=== PATIENT | male | born 1945 | race Hispanic/Latino ===

== ENCOUNTER 2017-12-11 21:05 | Inpatient (IN) | payer OTHER ==
[~2017-12-11] VITALS: Ht 172.7 cm; Wt 113.7 kg
[2017-12-11 21:38] LABS: BASOPHILS % (AUTO) 0.5 % (0.0-5.0); EOSINOPHILS % (AUTO) 0.3 % (0.0-8.0); HEMATOCRIT 37.8 % (42-54); LYMPHOCYTES % (AUTO) 8.9 % (21.0-51.0); MEAN CORPUSCULAR HEMOGLOBIN 27.5 pg (27.0-33.0); MEAN CORPUSCULAR VOLUME 83.4 fL (79-99); NEUTROPHILS % (AUTO) 81.3 % (40.0-77.0); PLATELET COUNT (AUTO) 179 K/uL (130-400); RED BLOOD CELL COUNT(AUTO) 4.53 MIL/uL (4.50-6.20); RED CELL DISTRIBUTION WIDTH 13.6 % (11.0-15.5); WHITE BLOOD COUNT (AUTO) 11.3 K/uL (4.8-10.8)
[2017-12-11] MEDS ORDERED: IPRATROPIUM/ALBUTEROL SULFATE 3 ML SOLUTION IH ONE (21:43)
[2017-12-11 21:45] LABS: INR 1.02 (0.85-1.15); PARTIAL THROMBOPLASTIN TIME 25.2 SEC (26.3-35.5); PROTHROMBIN TIME 10.7 SEC (9.6-11.6)
[2017-12-11 22:08] LABS: CREATININE 2.4 mg/dL (0.5-1.5); POTASSIUM 4.4 mmol/L (3.5-5.1)
[2017-12-11 22:27] LABS: ALBUMIN 3.9 g/dL (3.5-5.0); BILIRUBIN,TOTAL 0.9 mg/dL (0.2-1.0); CREATINE KINASE MB 0.6 ng/mL (0.5-3.6); TOTAL PROTEIN, SERUM 7.6 g/dL (6.0-8.3); TROPONIN I 0.06 ng/mL (0.00-0.06)
[2017-12-11] MEDS ORDERED: ACETAMINOPHEN 325 MG TAB ONE (22:36)
[2017-12-11 23:04] LABS: APPEARANCE,URINE Clear (CLEAR); BILIRUBIN,URINE Negative (NEGATIVE); COLOR,URINE Yellow (YELLOW); GLUCOSE, URINE (UA) >=1000 mg/dL (NEGATIVE); KETONES,URINE Negative (NEGATIVE); LEUKOCYTE ESTERASE ,URINE Negative (NEGATIVE); NITRATE,URINE Negative (NEGATIVE); OCCULT BLOOD,URINE Small (NEGATIVE); PROTEIN,URINE 300 (NEGATIVE)
[2017-12-11 23:22] LABS: BACTERIA,URINE None Seen /HPF (None Seen); RBC,URINE 0-1 /HPF (0-1); SQUAMOUS EPITHELIAL CELL,UR Rare /LPF (0-2); WBC,URINE None Seen /HPF (0-1); YEAST,URINE BUDDING None Seen /HPF (None Seen)
[2017-12-11 23:23] LABS: HYALINE CASTS, URINE 0-1 /LPF (0-1 /LPF)
[2017-12-12] MEDS ORDERED: ACETAMINOPHEN 325 MG TAB PO PRN (02:15)
[2017-12-12] MEDS ORDERED: HYDRALAZINE HCL 20 MG/ML VIAL IV PRN (02:15)
[2017-12-12] MEDS ORDERED: ONDANSETRON HCL 4 MG/2 ML VIAL IV PRN (02:15)
[2017-12-12 03:17] LABS: CREATININE 2.7 mg/dL (0.5-1.5); MAGNESIUM 1.7 mg/dL (1.80-2.40); POTASSIUM 4.6 mmol/L (3.5-5.1)
[2017-12-12 03:18] LABS: HEMATOCRIT 33.5 % (42-54); MEAN CORPUSCULAR HEMOGLOBIN 27.7 pg (27.0-33.0); MEAN CORPUSCULAR HGB CONC 32.7 g/dL (32.0-36.0); MEAN CORPUSCULAR VOLUME 84.5 fL (79-99); PLATELET COUNT (AUTO) 147 K/uL (130-400); RED BLOOD CELL COUNT(AUTO) 3.96 MIL/uL (4.50-6.20); WHITE BLOOD COUNT (AUTO) 11.9 K/uL (4.8-10.8)
[2017-12-12] MEDS ORDERED: ZOSYN 3.375GM+NS 50ML 50 ML IV SCH (05:00)
[2017-12-12] MEDS ORDERED: ZOSYN 3.375GM+NS 50ML 50 ML IV ONE ×2 (05:43→13:06)
[2017-12-12] MEDS: FUROSEMIDE 10 MG/ML 4ML VIAL IV SCH (09:00)
[2017-12-12] MEDS: PANTOPRAZOLE SODIUM 40 MG TABLET.DR PO SCH (09:00)
[2017-12-12] MEDS ORDERED: FUROSEMIDE 10 MG/ML 4ML VIAL ONE (10:23)
[2017-12-12] MEDS ORDERED: PANTOPRAZOLE SODIUM 40 MG TABLET.DR PO ONE (10:23)
[2017-12-12] MEDS ORDERED: HEPARIN SODIUM 5000UNIT/ML 1ML VIAL ONE (10:23)
[2017-12-12 18:42] VITALS: BP 133/50
[2017-12-12 19:00] VITALS: BP 126/40
[2017-12-12] MEDS ORDERED: PREG300C PO (19:02)
[2017-12-12] MEDS ORDERED: MONT10TA24 PO (19:02)
[2017-12-12] MEDS ORDERED: TYL3 PO (19:02)
[2017-12-12] MEDS ORDERED: ROSU20TA PO (19:02)
[2017-12-12] MEDS ORDERED: LINA145C PO (19:02)
[2017-12-12] MEDS ORDERED: METO50TA18 PO (19:02)
[2017-12-12] MEDS ORDERED: ISOS60TA4 PO (19:02)
[2017-12-12] MEDS ORDERED: CLOP75TA32 PO (19:02)
[2017-12-12] MEDS ORDERED: INSLAN SQ (19:02)
[2017-12-12] MEDS ORDERED: FLUT16H NS (19:02)
[2017-12-12] MEDS ORDERED: DUTA1CPM4 PO (19:02)
[2017-12-12] MEDS ORDERED: SEVE800T7 PO (19:02)
[2017-12-12] MEDS ORDERED: FLUT1BLS IH (19:02)
[2017-12-12] MEDS: IPRATROPIUM/ALBUTEROL SULFATE 3 ML SOLUTION IH SCH (19:03)
[2017-12-12] MEDS: MEROPENEM 500 MG VIAL IVP SCH (21:07)
[2017-12-12] MEDS: HEPARIN SODIUM 5000UNIT/ML 1ML VIAL SQ SCH (21:08)
[2017-12-12 23:00] VITALS: BP 127/56
[2017-12-13] MEDS: IPRATROPIUM/ALBUTEROL SULFATE 3 ML SOLUTION IH SCH ×4 (00:10→18:36)
[2017-12-13 03:00] VITALS: BP 126/53
[2017-12-13] MEDS: INSULIN HUMULIN R 100 UNIT/ML 3ML SQ SCH ×4 (06:06→20:26)
[2017-12-13 07:53] VITALS: BP 126/58
[2017-12-13] MEDS ORDERED: WATER FOR INJECTION,STERILE 20 ML VIAL ONE (08:55)
[2017-12-13] MEDS: JALYN PO SCH (09:00)
[2017-12-13] MEDS: FUROSEMIDE 10 MG/ML 4ML VIAL IV SCH (09:00)
[2017-12-13] MEDS: FLUTICASONE/VILANTEROL 1 EACH BLST.W.DEV IH SCH (09:00)
[2017-12-13] MEDS: FLUTICASONE PROPIONATE 50MCG/SPRAY 16 GM BOTTLE NS SCH (09:00)
[2017-12-13] MEDS: METOPROLOL TARTRATE 50 MG TAB PO SCH ×2 (09:00→20:21)
[2017-12-13] MEDS: ISOSORBIDE MONO 60 MG TAB.SR PO SCH (09:00)
[2017-12-13] MEDS: MEROPENEM 500 MG VIAL IVP SCH ×2 (09:58→20:20)
[2017-12-13] MEDS: PANTOPRAZOLE SODIUM 40 MG TABLET.DR PO SCH (09:59)
[2017-12-13] MEDS: PREGABALIN 100 MG CAPSULE PO SCH ×2 (09:59→20:21)
[2017-12-13] MEDS: SEVELAMER HCL 800 MG TABLET PO SCH ×3 (09:59→17:00)
[2017-12-13] MEDS: CLOPIDOGREL BISULFATE 75 MG TAB PO SCH (09:59)
[2017-12-13] MEDS: HEPARIN SODIUM 5000UNIT/ML 1ML VIAL SQ SCH ×2 (10:02→20:23)
[2017-12-13 11:47] VITALS: BP 135/62
[2017-12-13] MEDS ORDERED: HEPARIN SODIUM 5000UNIT/ML 1ML VIAL IJ PRN ×2 (15:00)
[2017-12-13] MEDS ORDERED: SODIUM CHLORIDE 0.9% 1000ML 1,000 ML IV PRN (15:00)
[2017-12-13] MEDS ORDERED: ALBUMIN (HUMAN) 25% 100 ML IV PRN (15:00)
[2017-12-13] MEDS ORDERED: 0.9% SODIUM CHLORIDE 250 ML IV BAG IV PRN (15:00)
[2017-12-13 16:10] VITALS: BP 138/43
[2017-12-13 19:00] VITALS: BP 101/43
[2017-12-13] MEDS: ACETAMINOPHEN-CODEINE 300/30MG TAB PO PRN (20:21)
[2017-12-13] MEDS: ATORVASTATIN CALCIUM 40 MG TABLET PO SCH (20:21)
[2017-12-13] MEDS: MONTELUKAST SODIUM 10 MG TAB PO SCH (20:21)
[2017-12-13] MEDS: INSULIN GLARGINE 100 UNITS/ML 10 ML VIAL SQ SCH (20:24)
[2017-12-13 23:00] VITALS: BP 106/41
[2017-12-14] MEDS: IPRATROPIUM/ALBUTEROL SULFATE 3 ML SOLUTION IH SCH ×5 (01:26→23:44)
[2017-12-14 03:00] VITALS: BP 138/47
[2017-12-14 05:12] LABS: BASOPHILS % (AUTO) 0.9 % (0.0-5.0); EOSINOPHILS % (AUTO) 2.3 % (0.0-8.0); HEMATOCRIT 32.3 % (42-54); LYMPHOCYTES % (AUTO) 22.1 % (21.0-51.0); MEAN CORPUSCULAR HEMOGLOBIN 27.7 pg (27.0-33.0); MEAN CORPUSCULAR HGB CONC 33.4 g/dL (32.0-36.0); MEAN CORPUSCULAR VOLUME 82.8 fL (79-99); NEUTROPHILS % (AUTO) 58.7 % (40.0-77.0); PLATELET COUNT (AUTO) 188 K/uL (130-400)
[2017-12-14 05:29] LABS: CREATININE 3.6 mg/dL (0.5-1.5); PHOSPHORUS 4.3 mg/dL (2.5-4.9); POTASSIUM 3.8 mmol/L (3.5-5.1)
[2017-12-14] MEDS: INSULIN HUMULIN R 100 UNIT/ML 3ML SQ SCH ×4 (06:01→23:03)
[2017-12-14 08:00] VITALS: BP 129/65
[2017-12-14] MEDS: JALYN PO SCH (09:00)
[2017-12-14] MEDS: FLUTICASONE PROPIONATE 50MCG/SPRAY 16 GM BOTTLE NS SCH ×2 (09:00→21:00)
[2017-12-14] MEDS: ISOSORBIDE MONO 60 MG TAB.SR PO SCH (09:00)
[2017-12-14] MEDS: FLUTICASONE/VILANTEROL 1 EACH BLST.W.DEV IH SCH (09:00)
[2017-12-14] MEDS: CLOPIDOGREL BISULFATE 75 MG TAB PO SCH (09:37)
[2017-12-14] MEDS: METOPROLOL TARTRATE 50 MG TAB PO SCH ×2 (09:37→23:07)
[2017-12-14] MEDS: PREGABALIN 100 MG CAPSULE PO SCH ×2 (09:37→23:07)
[2017-12-14] MEDS: PANTOPRAZOLE SODIUM 40 MG TABLET.DR PO SCH (09:37)
[2017-12-14] MEDS: HEPARIN SODIUM 5000UNIT/ML 1ML VIAL SQ SCH ×2 (09:40→23:02)
[2017-12-14] MEDS: MEROPENEM 500 MG VIAL IVP SCH ×2 (09:44→23:06)
[2017-12-14] MEDS: SEVELAMER HCL 800 MG TABLET PO SCH ×3 (09:46→16:44)
[2017-12-14] MEDS: ACETAMINOPHEN-CODEINE 300/30MG TAB PO PRN (10:07)
[2017-12-14 11:53] VITALS: BP 128/40
[2017-12-14] MEDS: FUROSEMIDE 10 MG/ML 4ML VIAL IV SCH (15:52)
[2017-12-14 15:54] VITALS: BP 122/54
[2017-12-14 20:15] VITALS: BP 113/49
[2017-12-14] MEDS: INSULIN GLARGINE 100 UNITS/ML 10 ML VIAL SQ SCH (23:03)
[2017-12-14] MEDS: ATORVASTATIN CALCIUM 40 MG TABLET PO SCH (23:07)
[2017-12-14] MEDS: GUAIFENESIN 600 MG TABLET.ER PO SCH (23:07)
[2017-12-14] MEDS: MONTELUKAST SODIUM 10 MG TAB PO SCH (23:07)
[2017-12-15 00:49] VITALS: BP 130/52
[2017-12-15 04:52] VITALS: BP 131/59
[2017-12-15 05:26] LABS: HEMATOCRIT 32.5 % (42-54); MEAN CORPUSCULAR HEMOGLOBIN 27.7 pg (27.0-33.0); MEAN CORPUSCULAR HGB CONC 33.2 g/dL (32.0-36.0); MEAN CORPUSCULAR VOLUME 83.4 fL (79-99); PLATELET COUNT (AUTO) 187 K/uL (130-400); RED CELL DISTRIBUTION WIDTH 13.8 % (11.0-15.5); WHITE BLOOD COUNT (AUTO) 6.3 K/uL (4.8-10.8)
[2017-12-15 05:30] LABS: CREATININE 4.5 mg/dL (0.5-1.5); POTASSIUM 4.4 mmol/L (3.5-5.1)
[2017-12-15] MEDS: INSULIN HUMULIN R 100 UNIT/ML 3ML SQ SCH ×3 (06:04→16:30)
[2017-12-15] MEDS: IPRATROPIUM/ALBUTEROL SULFATE 3 ML SOLUTION IH SCH ×2 (06:16→11:22)
[2017-12-15] MEDS ORDERED: BUDESONIDE 0.5 MG/2 ML INH IH SCH (06:59)
[2017-12-15 08:00] VITALS: BP 102/52
[2017-12-15] MEDS: PREGABALIN 100 MG CAPSULE PO SCH (08:29)
[2017-12-15] MEDS: CLOPIDOGREL BISULFATE 75 MG TAB PO SCH (08:29)
[2017-12-15] MEDS: PANTOPRAZOLE SODIUM 40 MG TABLET.DR PO SCH (08:29)
[2017-12-15] MEDS: SEVELAMER HCL 800 MG TABLET PO SCH ×3 (08:29→17:00)
[2017-12-15] MEDS: METOPROLOL TARTRATE 50 MG TAB PO SCH (09:00)
[2017-12-15] MEDS: JALYN PO SCH (09:00)
[2017-12-15] MEDS: FLUTICASONE PROPIONATE 50MCG/SPRAY 16 GM BOTTLE NS SCH (09:00)
[2017-12-15 10:56] VITALS: BP 139/39
[2017-12-15] MEDS ORDERED: WATER FOR INJECTION,STERILE 20 ML VIAL ONE (11:07)
[2017-12-15] MEDS: MEROPENEM 500 MG VIAL IVP SCH (11:45)
[2017-12-15] MEDS: GUAIFENESIN 600 MG TABLET.ER PO SCH (11:46)
[2017-12-15] MEDS ORDERED: AMOX-426 PO (12:27)
[2017-12-15 16:00] VITALS: BP 133/39
[2018-03-30] MEDS ORDERED: SPIR25TA4 PO (12:04)
== END 2017-12-15 18:04 | disposition home or self-care (01) | DRG 871 ==
LOC: EDH 21:05 → EDHIP 12-12 02:05 → MERGE 12-12 02:05 → 4BH 12-12 18:02
PROVIDERS: ADMIT Family Medicine; ATTEND Family Medicine
PROC: 5A1D70Z Performance of Urinary Filtration, Intermittent, Less than 6 Hours Per Day (ICD-10-PCS; principal; 2017-12-13)
PROC: 5A1D70Z Performance of Urinary Filtration, Intermittent, Less than 6 Hours Per Day (ICD-10-PCS; 2017-12-15)
DX: A41.9 Sepsis, unspecified organism (principal); J18.9 Pneumonia, unspecified organism; I12.0 Hypertensive chronic kidney disease with stage 5 chronic kidney disease or end stage renal disease; E11.21 Type 2 diabetes mellitus with diabetic nephropathy; E11.51 Type 2 diabetes mellitus with diabetic peripheral angiopathy without gangrene; N18.6 End stage renal disease; E11.22 Type 2 diabetes mellitus with diabetic chronic kidney disease; D64.9 Anemia, unspecified; E78.5 Hyperlipidemia, unspecified; E66.9 Obesity, unspecified; I25.10 Atherosclerotic heart disease of native coronary artery without angina pectoris; Z99.2 Dependence on renal dialysis; Z95.5 Presence of coronary angioplasty implant and graft; Z83.3 Family history of diabetes mellitus; Z82.49 Family history of ischemic heart disease and other diseases of the circulatory system; Z68.38 Body mass index [BMI] 38.0-38.9, adult
CPT/HCPCS: 36415; 71045; 80048; 80053; 81001; 82550; 82553; 82948; 83605; 83735; 83874; 84100; 84484; 85025; 85027; 85610; 85730; 87040; 87088; 87186; 87633; 87804; 90935; 93005; 94640; 94664; 99291; A4218; J1644; J1815; J1940; J2185; J2543

== ENCOUNTER 2018-03-29 23:33 | Observation (INO) | payer OTHER ==
[~2018-03-29] VITALS: Ht 172.7 cm; Wt 111.5 kg
[~2018-03-29 23:33] MED LIST: AMOX-426 PO; CLOP75TA32 PO; DUTA1CPM4 PO; FLUT16H NS; FLUT1BLS IH; INSLAN SQ; LINA145C PO; MONT10TA24 PO; PREG300C PO; ROSU20TA PO; SEVE800T7 PO; TYL3 PO
[2018-03-30 00:02] LABS: BASOPHILS % (AUTO) 1.3 % (0.0-5.0); EOSINOPHILS % (AUTO) 5.3 % (0.0-8.0); HEMATOCRIT 35.3 % (42-54); LYMPHOCYTES % (AUTO) 11.8 % (21.0-51.0); MEAN CORPUSCULAR HEMOGLOBIN 27.6 pg (27.0-33.0); MEAN CORPUSCULAR HGB CONC 32.9 g/dL (32.0-36.0); MEAN CORPUSCULAR VOLUME 83.8 fL (79-99); MONOCYTES % (AUTO) 13.1 % (3.0-13.0); NEUTROPHILS % (AUTO) 68.5 % (40.0-77.0); PLATELET COUNT (AUTO) 182 K/uL (130-400); RED BLOOD CELL COUNT(AUTO) 4.21 MIL/uL (4.50-6.20); WHITE BLOOD COUNT (AUTO) 6.2 K/uL (4.8-10.8)
[2018-03-30 00:15] LABS: CREATININE 3.4 mg/dL (0.5-1.5); POTASSIUM 4.6 mmol/L (3.5-5.1)
[2018-03-30 00:16] LABS: PARTIAL THROMBOPLASTIN TIME 26.9 SEC (26.3-35.5); PROTHROMBIN TIME 10.5 SEC (9.6-11.6)
[2018-03-30 00:27] LABS: ALBUMIN 3.3 g/dL (3.5-5.0); TOTAL PROTEIN, SERUM 7.3 g/dL (6.0-8.3)
[2018-03-30] MEDS ORDERED: IOPAMIDOL-370 75 ML VIAL IV ONE (03:10)
[2018-03-30] MEDS ORDERED: ONDANSETRON HCL 4 MG/2 ML VIAL ONE (06:51)
[2018-03-30] MEDS ORDERED: MECLIZINE HCL 25 MG TABLET ONE (07:59)
[2018-03-30] MEDS ORDERED: ONDANSETRON HCL MDV 20ML 2 MG/ML VIAL IVP PRN (11:00)
[2018-03-30 12:00] VITALS: BP 151/47
[2018-03-30] MEDS ORDERED: METO50TA18 PO (12:04)
[2018-03-30] MEDS ORDERED: SPIR25TA6 PO (12:04)
[2018-03-30] MEDS ORDERED: ESCI10TA54 PO (12:04)
[2018-03-30] MEDS ORDERED: LINA5TAB PO (12:04)
[2018-03-30] MEDS ORDERED: ISOS60TA4 PO (12:04)
[2018-03-30] MEDS: MECLIZINE HCL 25 MG TABLET PO SCH ×2 (14:53→23:09)
[2018-03-30 16:00] VITALS: BP 171/59
[2018-03-30] MEDS: SEVELAMER HCL 800 MG TABLET PO SCH (17:20)
[2018-03-30 19:24] VITALS: BP 150/39
[2018-03-30] MEDS ORDERED: HEPARIN SODIUM 5000UNIT/ML 1ML VIAL IJ PRN (20:15)
[2018-03-30] MEDS ORDERED: 0.9% SODIUM CHLORIDE 250 ML IV BAG IV PRN (20:15)
[2018-03-30] MEDS ORDERED: SODIUM CHLORIDE 0.9% 1000ML 1,000 ML IV PRN (20:15)
[2018-03-30 20:18] VITALS: BP 168/69
[2018-03-30] MEDS ORDERED: METOPROLOL TARTRATE 50 MG TAB PO SCH (21:00)
[2018-03-30] MEDS ORDERED: MONTELUKAST SODIUM 10 MG TAB PO SCH (21:00)
[2018-03-30] MEDS ORDERED: ATORVASTATIN CALCIUM 40 MG TABLET PO SCH (21:00)
[2018-03-30] MEDS ORDERED: CITALOPRAM 20 MG TABLET PO SCH (21:00)
[2018-03-30 23:44] VITALS: BP 163/41
[2018-03-31 03:57] VITALS: BP 143/65
[2018-03-31 06:02] LABS: BASOPHILS % (AUTO) 1.1 % (0.0-5.0); EOSINOPHILS % (AUTO) 5.1 % (0.0-8.0); HEMATOCRIT 33.1 % (42-54); LYMPHOCYTES % (AUTO) 16.5 % (21.0-51.0); MEAN CORPUSCULAR HEMOGLOBIN 27.9 pg (27.0-33.0); MEAN CORPUSCULAR HGB CONC 33.9 g/dL (32.0-36.0); MEAN CORPUSCULAR VOLUME 82.4 fL (79-99); MONOCYTES % (AUTO) 16.6 % (3.0-13.0); NEUTROPHILS % (AUTO) 60.7 % (40.0-77.0); PLATELET COUNT (AUTO) 198 K/uL (130-400); RED BLOOD CELL COUNT(AUTO) 4.01 MIL/uL (4.50-6.20); RED CELL DISTRIBUTION WIDTH 13.5 % (11.0-15.5); WHITE BLOOD COUNT (AUTO) 5.8 K/uL (4.8-10.8)
[2018-03-31 06:11] LABS: CREATININE 2.9 mg/dL (0.5-1.5)
[2018-03-31] MEDS: SEVELAMER HCL 800 MG TABLET PO SCH (07:46)
[2018-03-31] MEDS ORDERED: DUTASTERIDE PO SCH (09:00)
[2018-03-31] MEDS ORDERED: TAMSULOSIN PO SCH (09:00)
[2018-03-31] MEDS ORDERED: CLOPIDOGREL BISULFATE 75 MG TAB PO SCH (09:00)
[2018-03-31] MEDS: MECLIZINE HCL 25 MG TABLET PO SCH (09:56)
[2018-03-31] MEDS ORDERED: METO50 PO (11:27)
== END 2018-03-31 13:35 | disposition home or self-care (01) ==
LOC: EDH 23:33 → EDHIP 03-30 09:00 → MERGE 03-30 09:00 → INTOOBSV 03-30 09:00 → 3DH 03-30 10:17
PROVIDERS: ADMIT Internal Medicine Nephrology; ATTEND Internal Medicine Nephrology
DX: I12.0 Hypertensive chronic kidney disease with stage 5 chronic kidney disease or end stage renal disease (principal); E11.22 Type 2 diabetes mellitus with diabetic chronic kidney disease; E11.319 Type 2 diabetes mellitus with unspecified diabetic retinopathy without macular edema; E11.51 Type 2 diabetes mellitus with diabetic peripheral angiopathy without gangrene; I25.10 Atherosclerotic heart disease of native coronary artery without angina pectoris; R42 Dizziness and giddiness; D64.9 Anemia, unspecified; N18.6 End stage renal disease; Z99.2 Dependence on renal dialysis; Z82.49 Family history of ischemic heart disease and other diseases of the circulatory system; Z83.3 Family history of diabetes mellitus; Z79.01 Long term (current) use of anticoagulants
CPT/HCPCS: 36415 ×2; 70450; 70544; 70547; 70551; 71045; 80048; 80053; 82150; 82550; 82553; 82948 ×5; 83690; 83874; 84484; 85025 ×2; 85610; 85730; 93005; 99285; A4600; G0378 ×29; J1644 ×2; J2405; 90935; G0257; Q9967

== ENCOUNTER 2019-12-01 15:59 | Observation (INO) | payer OTHER ==
[~2019-12-01] VITALS: Ht 172.7 cm; Wt 116.3 kg
[~2019-12-01 15:59] MED LIST changes: -AMOX-426 PO; +CARB15DR87 OP; +ESCI10TA54 PO; +FERR210T PO; +GUAI237L82 PO; +ISOS30TA6 PO; +ISOS60TA4 PO; +LEVO500T2 PO; +LINA5TAB PO; +METO25 PO; +MOME17SP10 NS; -MONT10TA24 PO; +NITR0.4T50 SL; -ROSU20TA PO; +ROSU20TA23 PO
[2019-12-01 17:22] LABS: BASOPHILS % (AUTO) 0.1 % (0.0-5.0); EOSINOPHILS % (AUTO) 1.2 % (0.0-8.0); HEMATOCRIT 32.7 % (42-54); MEAN CORPUSCULAR HEMOGLOBIN 26.7 pg (27.0-33.0); MEAN CORPUSCULAR HGB CONC 31.2 g/dL (32.0-36.0); MEAN CORPUSCULAR VOLUME 85.6 fL (79-99); MONOCYTES % (AUTO) 15.8 % (3.0-13.0); NEUTROPHILS % (AUTO) 64.4 % (40.0-77.0); PLATELET COUNT (AUTO) 224 K/uL (130-400); RED BLOOD CELL COUNT(AUTO) 3.82 MIL/uL (4.50-6.20); RED CELL DISTRIBUTION WIDTH 13.1 % (11.0-15.5); WHITE BLOOD COUNT (AUTO) 8.2 K/uL (4.8-10.8)
[2019-12-01 17:36] LABS: INR 1.01 (0.85-1.15); PARTIAL THROMBOPLASTIN TIME 23.8 SEC (26.3-35.5); PROTHROMBIN TIME 10.6 SEC (9.6-11.6)
[2019-12-01 17:39] LABS: ALBUMIN 3.6 g/dL (3.5-5.0); BILIRUBIN,DIRECT 0.1 mg/dL (0.0-0.3); BILIRUBIN,TOTAL 0.4 mg/dL (0.2-1.0); POTASSIUM 4.8 mmol/L (3.5-5.1)
[2019-12-01 17:44] LABS: CREATININE 10.6 mg/dL (0.5-1.5)
[2019-12-01] MEDS ORDERED: ASPIRIN 81MG TAB.CHEW ONE (18:35)
[2019-12-01 18:53] LABS: B-TYPE NATRIURETIC PEPTIDE 34 pg/mL (0-100)
[2019-12-01] MEDS ORDERED: MORPHINE SULFATE 2 MG/ML 1ML SYG IV PRN (19:00)
[2019-12-01] MEDS ORDERED: NITROGLYCERIN 0.4 MG SL TAB SL PRN (19:00)
[2019-12-01] MEDS ORDERED: LACTULOSE 20 GM/30 ML UDCUP PO PRN (19:00)
[2019-12-01] MEDS ORDERED: ACETAMINOPHEN 325 MG TAB PO PRN (19:00)
[2019-12-01] MEDS ORDERED: ONDANSETRON HCL 4 MG/2 ML VIAL IV PRN (19:00)
[2019-12-01 19:21] LABS: CHOLESTEROL 120 mg/dL (<200); HDL CHOLESTEROL 104 mg/dL (29-71); HEMOGLOBIN A1C 10.4 % (4.0-6.0); LDL DIRECT 47 mg/dL (0-99); TRIGLYCERIDES 200 mg/dL (30-200)
[2019-12-01] MEDS ORDERED: HEPARIN SODIUM 5000UNIT/ML 1ML VIAL SQ SCH (19:30)
[2019-12-01] MEDS ORDERED: HEPARIN SODIUM 5000UNIT/ML 1ML VIAL ONE (20:49)
[2019-12-01] MEDS ORDERED: FAMOTIDINE 20MG TAB 20 MG TAB ONE (20:49)
[2019-12-01] MEDS ORDERED: ATORVASTATIN CALCIUM 20 MG TABLET ONE (20:49)
[2019-12-01] MEDS: ATORVASTATIN CALCIUM 20 MG TABLET PO SCH (21:00)
[2019-12-01] MEDS: INSULIN HUMULIN R 100 UNIT/ML 3ML SQ SCH (21:00)
[2019-12-01] MEDS ORDERED: ACETAMINOPHEN 325 MG TAB ONE (23:10)
[2019-12-01] MEDS: IPRATROPIUM/ALBUTEROL SULFATE 3 ML SOLUTION IH SCH (23:58)
[2019-12-02] VITALS (7 sets, daily range): BP systolic 96–120; BP diastolic 39–52
[2019-12-02] MEDS ORDERED: SUCR500T PO (00:57)
[2019-12-02] MEDS ORDERED: TIOT4MIS3 IH (00:57)
[2019-12-02] MEDS ORDERED: METO-408 PO (00:57)
[2019-12-02 04:08] LABS: BASOPHILS % (AUTO) 0.2 % (0.0-5.0); HEMATOCRIT 32.4 % (42-54); LYMPHOCYTES % (AUTO) 25.8 % (21.0-51.0); MEAN CORPUSCULAR HEMOGLOBIN 26.6 pg (27.0-33.0); MEAN CORPUSCULAR HGB CONC 31.2 g/dL (32.0-36.0); MEAN CORPUSCULAR VOLUME 85.5 fL (79-99); MONOCYTES % (AUTO) 15.6 % (3.0-13.0); NEUTROPHILS % (AUTO) 54.5 % (40.0-77.0); PLATELET COUNT (AUTO) 220 K/uL (130-400); RED BLOOD CELL COUNT(AUTO) 3.79 MIL/uL (4.50-6.20); RED CELL DISTRIBUTION WIDTH 13.2 % (11.0-15.5); WHITE BLOOD COUNT (AUTO) 6.4 K/uL (4.8-10.8)
[2019-12-02 05:06] LABS: POTASSIUM 4.9 mmol/L (3.5-5.1)
[2019-12-02 05:08] LABS: CREATININE 11.8 mg/dL (0.5-1.5)
[2019-12-02] MEDS: INSULIN HUMULIN R 100 UNIT/ML 3ML SQ SCH ×4 (05:51→21:34)
[2019-12-02] MEDS ORDERED: ASPIRIN 81MG TAB.CHEW ONE (08:36)
[2019-12-02] MEDS: FAMOTIDINE 20MG TAB 20 MG TAB PO SCH (08:56)
[2019-12-02] MEDS: ASPIRIN 325 MG TABLET PO SCH (08:56)
[2019-12-02] MEDS: HEPARIN SODIUM 5000UNIT/ML 1ML VIAL SQ SCH ×2 (08:57→21:35)
[2019-12-02] MEDS ORDERED: MIDODRINE HCL 5 MG TABLET ONE (09:00)
[2019-12-02] MEDS: MIDODRINE HCL 5 MG TABLET PO SCH ×3 (09:09→21:38)
[2019-12-02] MEDS: ACETAMINOPHEN 325 MG TAB PO PRN (10:15)
[2019-12-02] MEDS: IPRATROPIUM/ALBUTEROL SULFATE 3 ML SOLUTION IH SCH ×3 (12:16→23:14)
--- NOTE | 2019-12-02 14:57 | NUR ---
DC PLAN VISITED WITH PATIENT. PATIENT LIVES WITH ALONE. INDEPENDENT ABLE TO PERFORM MOST ADL'S. PATIENT HAS PROVIDER 4 HRS A DAY. SHE TAKES HIM TO DIALYSIS TTS. USES A WHEEL CHAIR AND CANE. FEELS SAFE TO RETURN. Addendum: 12/02/19 at 1459 by MOUSTAPHA RAMSEY RN CM Amended: Links added.
[2019-12-02] MEDS: ATORVASTATIN CALCIUM 20 MG TABLET PO SCH (21:38)
[2019-12-03 04:00] VITALS: BP 120/44
[2019-12-03] MEDS: INSULIN HUMULIN R 100 UNIT/ML 3ML SQ SCH ×2 (06:19→11:30)
[2019-12-03] MEDS: IPRATROPIUM/ALBUTEROL SULFATE 3 ML SOLUTION IH SCH ×2 (07:25→11:19)
[2019-12-03 08:14] VITALS: BP 119/42
[2019-12-03] MEDS ORDERED: ASPIRIN 81MG TAB.CHEW ONE (08:49)
[2019-12-03] MEDS: FAMOTIDINE 20MG TAB 20 MG TAB PO SCH (08:52)
[2019-12-03] MEDS: MIDODRINE HCL 5 MG TABLET PO SCH ×2 (08:52→13:11)
[2019-12-03] MEDS: ASPIRIN 325 MG TABLET PO SCH (08:53)
[2019-12-03] MEDS: ACETAMINOPHEN 325 MG TAB PO PRN (08:53)
[2019-12-03] MEDS ORDERED: TAMSULOSIN HCL 0.4 MG CAP.ER.24H PO SCH (09:00)
[2019-12-03] MEDS: HEPARIN SODIUM 5000UNIT/ML 1ML VIAL SQ SCH (09:00)
[2019-12-03] MEDS ORDERED: LINAGLIPTIN 5 MG TABLET PO SCH (09:00)
[2019-12-03] MEDS ORDERED: CITALOPRAM 20 MG TABLET PO SCH (09:00)
[2019-12-03] MEDS ORDERED: FLUTICASONE PROPIONATE 50MCG/SPRAY 16 GM BOTTLE NS SCH (09:00)
[2019-12-03] MEDS ORDERED: PREGABALIN 25 MG CAP PO SCH (09:00)
[2019-12-03] MEDS ORDERED: MIDO10TA PO (10:21)
[2019-12-03 11:31] VITALS: BP 113/36
--- NOTE | 2019-12-03 13:05 | NUR ---
DISCHARGE Spoke to family members at bedside regarding pt's discharge. At present, unable to schedule pt's hospital follow up with PCP - no answer at MD's office. Pt's daughter stated that she will call in AM to schedule appt.
--- NOTE | 2019-12-03 13:41 | NUR ---
PATIENT READY FOR DISCHARGE HOME. EDUCATION/INFORMATION DISCHARGE PACKET GIVEN. CHARGE NURSE INSTRUCTING PATIENT ON DISCHARGE PLAN. DC IV X1. PATIENT EDUCATED ON NEW AND CURRENT MEDICATIONS, FOLLOW UP APPOINTMENTS. PATIENT DISCHARGED.
--- NOTE | 2019-12-03 14:42 | NUR ---
1252 had pt sign [facility] Letter,faxed to [phone] and placed in chart under consent tab
[2019-12-03] MEDS ORDERED: NON-FORMULARY MEDICATION 1 EACH (Rosuvastatin Calcium (Crestor) 20 MG) PO SCH (21:00)
[2019-12-03] MEDS ORDERED: FINASTERIDE 5 MG TABLET PO SCH (21:00)
[2019-12-04 08:12] LABS: HEPATITIS Bs ANTIGEN SCREEN P Negative (Negative)
== END 2019-12-03 14:00 | disposition home or self-care (01) ==
LOC: EDH 15:59 → EDHIP 18:52 → INTOOBSV 18:52 → 2DH 12-02 00:29
PROVIDERS: ADMIT Family Medicine; ATTEND Family Medicine
DX: J90 Pleural effusion, not elsewhere classified (principal); R07.89 Other chest pain; I95.9 Hypotension, unspecified; E78.00 Pure hypercholesterolemia, unspecified; E87.5 Hyperkalemia; E11.22 Type 2 diabetes mellitus with diabetic chronic kidney disease; E11.51 Type 2 diabetes mellitus with diabetic peripheral angiopathy without gangrene; J44.9 Chronic obstructive pulmonary disease, unspecified; I25.2 Old myocardial infarction; M19.90 Unspecified osteoarthritis, unspecified site; I21.9 Acute myocardial infarction, unspecified; I13.2 Hypertensive heart and chronic kidney disease with heart failure and with stage 5 chronic kidney disease, or end stage renal disease; I50.9 Heart failure, unspecified; N18.6 End stage renal disease; I25.10 Atherosclerotic heart disease of native coronary artery without angina pectoris; E78.5 Hyperlipidemia, unspecified; G47.33 Obstructive sleep apnea (adult) (pediatric); Z79.4 Long term (current) use of insulin; E66.01 Morbid (severe) obesity due to excess calories; Z95.5 Presence of coronary angioplasty implant and graft; Z99.81 Dependence on supplemental oxygen; Z79.899 Other long term (current) drug therapy; Z68.39 Body mass index [BMI] 39.0-39.9, adult
CPT/HCPCS: 36415 ×2; 70450; 71045; 80048 ×2; 80061; 80076; 82550; 82948 ×7; 83036; 83605; 83880; 84484 ×3; 85025 ×2; 85610; 85730; 86706; 87340; 87520; 93005; 93880; 94640 ×6; 94664; 96372 ×2; 99284; G0378 ×41; J1644 ×5; J1815; 90935

== ENCOUNTER 2020-05-28 22:42 | Inpatient (IN) | payer OTHER ==
[~2020-05-28] VITALS: Ht 172.7 cm; Wt 136.1 kg
[~2020-05-28 22:42] MED LIST changes: -CARB15DR87 OP; -CLOP75TA32 PO; -FERR210T PO; -FLUT1BLS IH; -INSLAN SQ; -ISOS30TA6 PO; -ISOS60TA4 PO; -LEVO500T2 PO; -METO25 PO; +MIDO10TA PO; -MOME17SP10 NS; -SEVE800T7 PO; +SUCR500T PO; +TIOT4MIS3 IH; -TYL3 PO
[2020-05-28] MEDS ORDERED: ACETAMINOPHEN EXTRA STRENGTH 500 MG TABLET ONE (22:50)
[2020-05-28 23:17] LABS: BASOPHILS % (AUTO) 0.3 % (0.0-5.0); HEMATOCRIT 31.2 % (42-54); LYMPHOCYTES % (AUTO) 21.5 % (21.0-51.0); MEAN CORPUSCULAR HEMOGLOBIN 26.7 pg (27.0-33.0); MEAN CORPUSCULAR HGB CONC 31.1 g/dL (32.0-36.0); MONOCYTES % (AUTO) 15.7 % (3.0-13.0); NEUTROPHILS % (AUTO) 61.2 % (40.0-77.0); PLATELET COUNT (AUTO) 141 K/uL (130-400); RED BLOOD CELL COUNT(AUTO) 3.63 MIL/uL (4.50-6.20); WHITE BLOOD COUNT (AUTO) 3.1 K/uL (4.8-10.8)
[2020-05-28 23:37] LABS: INR 1.04 (0.85-1.15); PARTIAL THROMBOPLASTIN TIME 31.3 SEC (26.3-35.5); PROTHROMBIN TIME 11.2 SEC (9.6-11.6)
[2020-05-28 23:44] LABS: ALANINE AMINOTRANSFERASE 12 U/L (12-78); ALBUMIN 3.4 g/dL (3.5-5.0); ASPARTATE AMINOTRANSFERASE 10 U/L (10-37); BILIRUBIN,TOTAL 0.5 mg/dL (0.2-1.0); CARBON DIOXIDE 28 mmol/L (21-32); CHLORIDE 97 mmol/L (101-111); CREATINE KINASE, TOTAL 180 U/L (21-232); GLOMERULAR FILTR. RATE CALC 6 mL/min (>60); GLUCOSE,RANDOM 251 mg/dL (70-105); MYOGLOBIN 711 ng/mL (10-92); SODIUM SERUM 135 mmol/L (136-145); TOTAL PROTEIN, SERUM 7.2 g/dL (6.0-8.3); TROPONIN I < 0.04 ng/mL (0.00-0.06); UREA NITROGEN, BLOOD 60 mg/dL (7-18)
[2020-05-28 23:52] LABS: CREATININE 9.6 mg/dL (0.5-1.5)
[2020-05-29] MEDS ORDERED: NOREPINEPHRINE 4MG/NS 250ML 250 ML IV ONE ×4 (00:08→10:13)
[2020-05-29] MEDS ORDERED: ZOSYN 3.375GM+NS 50ML 50 ML IV ONE ×2 (00:08→08:42)
[2020-05-29 00:10] LABS: APPEARANCE,URINE Turbid (CLEAR); BILIRUBIN,URINE Negative (NEGATIVE); COLOR,URINE Dark Yellow (YELLOW); GLUCOSE, URINE (UA) Negative (NEGATIVE); KETONES,URINE Trace mg/dL (NEGATIVE); LEUKOCYTE ESTERASE ,URINE Moderate (NEGATIVE); NITRATE,URINE Negative (NEGATIVE); OCCULT BLOOD,URINE Large (NEGATIVE); PROTEIN,URINE POS 2+ mg/dL (NEGATIVE)
[2020-05-29 00:29] LABS: AMORPHOUS SEDIMENT,UR Moderate /LPF (None Seen); BACTERIA,URINE Few /HPF (None Seen); MUCUS,URINE Moderate LPF (None Seen); RBC,URINE None Seen /HPF (0-1); SQUAMOUS EPITHELIAL CELL,UR Moderate /HPF (0-2)
[2020-05-29 00:41] LABS: ABG BASE EXCESS -4.2 mmol/L (-2.0-3.0); ABG HCO3 25.2 mmol/L (21.0-28.0); ABG OXYGEN SATURATION 48.4 % (95.0-99.0); ABG PCO2 65 mmHg (35-48)
[2020-05-29] MEDS ORDERED: PROPOFOL 1000 MG/100 ML 100 ML IV ONE (01:11)
[2020-05-29] MEDS ORDERED: SODIUM CHLORIDE 0.9% 250 ML IV ONE (01:25)
[2020-05-29] MEDS ORDERED: FUROSEMIDE 10 MG/ML 2ML VIAL ONE (01:25)
[2020-05-29] MEDS ORDERED: MIDAZOLAM HCL 1 MG/ML 2ML VIAL ONE (02:32)
[2020-05-29] MEDS ORDERED: MIDAZOLAM HCL 5 MG/ML 2ML VIAL IV ONE (02:32)
[2020-05-29] MEDS ORDERED: SODIUM CHLORIDE 0.9% 50 ML IV ONE (02:33)
[2020-05-29] MEDS ORDERED: FENTANYL 1000MCG+NS 100ML 0 ML ONE (02:40)
[2020-05-29] MEDS ORDERED: MIDAZOLAM 50MG-0.9% NS 50ML 50 ML BAG IV SCH (02:45)
[2020-05-29] MEDS ORDERED: FENTANYL CITRATE PF 0.05 MG/ML 1,000 MCG in SODIUM CHLORIDE 0.9% 100 ML IVPB SCH (02:45)
[2020-05-29] MEDS ORDERED: ONDANSETRON HCL 4 MG/2 ML VIAL IV PRN (02:45)
[2020-05-29] MEDS ORDERED: VANCOMYCIN PROTOCOL PER PHARMACY IV SCH (02:45)
[2020-05-29] MEDS ORDERED: VANCOMYCIN 1GM+NS 250ML 250 ML IV ONE (03:33)
[2020-05-29] MEDS ORDERED: MIDAZOLAM 50MG-0.9% NS 50ML 50 ML IV SCH (05:30)
[2020-05-29] MEDS ORDERED: ACETAMINOPHEN ELIXIR 650 MG/20.3 ML UDCUP ONE (06:36)
[2020-05-29 07:07] LABS: EOSINOPHILS % (AUTO) 0.5 % (0.0-8.0); HEMATOCRIT 29.8 % (42-54); LYMPHOCYTES % (AUTO) 26.3 % (21.0-51.0); MEAN CORPUSCULAR HEMOGLOBIN 26.3 pg (27.0-33.0); MEAN CORPUSCULAR HGB CONC 30.9 g/dL (32.0-36.0); MEAN CORPUSCULAR VOLUME 85.1 fL (79-99); MONOCYTES % (AUTO) 10.3 % (3.0-13.0); NEUTROPHILS % (AUTO) 55.7 % (40.0-77.0); PLATELET COUNT (AUTO) 138 K/uL (130-400); WHITE BLOOD COUNT (AUTO) 1.9 K/uL (4.8-10.8)
[2020-05-29 07:17] LABS: ABG BASE EXCESS -8.2 mmol/L (-2.0-3.0); ABG HCO3 16.7 mmol/L (21.0-28.0); ABG OXYGEN SATURATION 88.2 % (95.0-99.0); ABG PCO2 33 mmHg (35-48)
[2020-05-29] MEDS ORDERED: MIDAZOLAM HCL 50 MG in SODIUM CHLORIDE 0.9% 50 ML IV SCH (08:00)
[2020-05-29] MEDS ORDERED: FENTANYL 1000MCG+NS 100ML IV.SOLN IV SCH (08:00)
[2020-05-29 08:06] LABS: ALBUMIN 2.9 g/dL (3.5-5.0); BILIRUBIN,TOTAL 0.8 mg/dL (0.2-1.0); POTASSIUM 3.8 mmol/L (3.5-5.1); TOTAL PROTEIN, SERUM 6.4 g/dL (6.0-8.3); TROPONIN I 0.16 ng/mL (0.00-0.06)
[2020-05-29] MEDS ORDERED: METHYLPREDNISOLONE SOD SUCC 40MG/ML 1ML ONE (08:42)
[2020-05-29] MEDS ORDERED: FAMOTIDINE/PF 20 MG/2 ML VIAL IV SCH (09:00)
[2020-05-29] MEDS ORDERED: METHYLPREDNISOLONE SOD SUCC 40MG/ML 1ML IVP SCH (09:00)
[2020-05-29] MEDS ORDERED: HEPARIN SODIUM 5000UNIT/ML 1ML VIAL SQ SCH (09:00)
[2020-05-29] MEDS ORDERED: PHENYLEPHRINE HCL 10 MG in SODIUM CHLORIDE 0.9% 250 ML IV PRN (10:00)
[2020-05-29] MEDS ORDERED: VASOPRESSIN 20 UNITS in SODIUM CHLORIDE 0.9% 100 ML IV SCH (10:15)
[2020-05-29] MEDS ORDERED: NOREPINEPHRINE 4MG/NS 250ML 250 ML IV SCH (10:30)
[2020-05-29 10:41] LABS: ABG BASE EXCESS -14.6 mmol/L (-2.0-3.0); ABG HCO3 12.9 mmol/L (21.0-28.0); ABG OXYGEN SATURATION 80.5 % (95.0-99.0); ABG PCO2 36 mmHg (35-48)
[2020-05-29] MEDS ORDERED: FENTANYL 1000MCG+NS 100ML 100 ML ONE (10:43)
[2020-05-29] MEDS ORDERED: ZOSYN 3.375GM+NS 50ML 50 ML IV SCH (12:00)
[2020-06-01] MEDS ORDERED: VANCOMYCIN 500MG+NS 100ML 100 ML IV SCH (18:00)
== END 2020-05-29 11:04 | disposition expired | DRG 871 ==
LOC: EDH 22:42 → EDHIP 05-29 02:40
PROVIDERS: ADMIT Internal Medicine; ATTEND Internal Medicine
PROC: 0BH17EZ Insertion of Endotracheal Airway into Trachea, Via Natural or Artificial Opening (ICD-10-PCS; principal; 2020-05-29)
PROC: 5A1935Z Respiratory Ventilation, Less than 24 Consecutive Hours (ICD-10-PCS; 2020-05-29)
PROC: 5A09357 Assistance with Respiratory Ventilation, Less than 24 Consecutive Hours, Continuous Positive Airway Pressure (ICD-10-PCS; 2020-05-29)
DX: A41.9 Sepsis, unspecified organism (principal); R65.21 Severe sepsis with septic shock; N18.6 End stage renal disease; J96.22 Acute and chronic respiratory failure with hypercapnia; J96.21 Acute and chronic respiratory failure with hypoxia; I21.A1 Myocardial infarction type 2; J15.6 Pneumonia due to other Gram-negative bacteria; I13.2 Hypertensive heart and chronic kidney disease with heart failure and with stage 5 chronic kidney disease, or end stage renal disease; I50.22 Chronic systolic (congestive) heart failure; N39.0 Urinary tract infection, site not specified; Z68.42 Body mass index [BMI] 45.0-49.9, adult; D64.9 Anemia, unspecified; I25.10 Atherosclerotic heart disease of native coronary artery without angina pectoris; J44.9 Chronic obstructive pulmonary disease, unspecified; E78.5 Hyperlipidemia, unspecified; Z82.49 Family history of ischemic heart disease and other diseases of the circulatory system; Z80.8 Family history of malignant neoplasm of other organs or systems; Z20.828 Contact with and (suspected) exposure to other viral communicable diseases; Z99.2 Dependence on renal dialysis; N40.0 Benign prostatic hyperplasia without lower urinary tract symptoms; M48.00 Spinal stenosis, site unspecified; M19.90 Unspecified osteoarthritis, unspecified site; Z80.0 Family history of malignant neoplasm of digestive organs; E11.22 Type 2 diabetes mellitus with diabetic chronic kidney disease; E11.51 Type 2 diabetes mellitus with diabetic peripheral angiopathy without gangrene; E66.9 Obesity, unspecified; F32.9 Major depressive disorder, single episode, unspecified; G25.0 Essential tremor; H52.4 Presbyopia; Z99.81 Dependence on supplemental oxygen; M54.9 Dorsalgia, unspecified; I25.2 Old myocardial infarction
CPT/HCPCS: 0099U; 31500; 36415; 36600; 71045; 76700; 80053; 81001; 82435; 82550; 82728; 82803; 82947; 83605; 83615; 83690; 83735; 83874; 83880; 84132; 84145; 84295; 84484; 85018; 85025; 85378; 85610; 85730; 87040; 87071; 87077; 87088; 87186; 87205; 87804; 93005; 94002; 94660; 99291; G0378; J1940; J2250; J2370; J2543; J2704; J2920; J3010; J3370; J3490; J7050; U0003